=== PATIENT | female | born 1995 | race Caucasian/White ===

== ENCOUNTER 2020-12-11 08:01 | Emergency (ER) | payer OTHER ==
--- OUTSIDE RECORDS SUMMARY | 2020-12-11 08:05 | XMS REPORT | Continuity of Care Document ---
:1995 Author Organization [facility] t Address [address] [place] [address] Care Team Providers Name Role Phone PAULINE Attending Clinician Unavailable COY Attending Clinician Unavailable Payers Payer Name Policy Type Policy Number Effective Date Expiration Date S ource Problems Condition Condition Condition Status Onset Resolution Last Treating Co mments Source Name Details Category Date Date Treatment Clinician Date History of History of Problem Resolve Univers Asthma Asthma d [facility]y of [place] [facility] History of History of Problem Resolve Univers polycystic polycystic d it y of ovarian ovarian [place] syndrome syndrome Physic i ans Shortness Shortness Problem Active Uni vers of breath of breath ity of on on [place] exertion exertion Physic i ans Asthma, Asthma, Problem Active Univers mild mild ity of intermitte intermitte [place] nt nt Physici ans Allergies, Adverse Reactions, Alerts Allergy Allergy Status Severity Reaction(s) Onset Inactive Treating Comm ents Source Name Type Date Date Clinician No Known DA Active U 2020-0 [facility] Allergie 7-17 Clear s 00:00: Guillory 00 [facility] Family History Family Member Diagnosis Comments Start Date Stop Date Source Mother Family history of Univers ity of [place] asthma Physicians Brother Family history of Univers ity of [place] asthma Physicians Social History Smoking Status Start Date Stop Date Source [facility]finding[facility] Medications Ordered Filled Start Stop Current Ordering Indication Dosage Frequency Signature Comments Components Source Medication Medication Date Date Medication? Clinician (SIG) Name Name Symbicort Symbicort 2020-1 Yes DEONTE USE Univers 160-4.5 160-4.5 2-14 DRONAVALLI DIRECTED. ity of MCG/ACT MCG/ACT 00:00: M.D. [place] Inhalation Inhalation 00 Phy sici Aerosol Aerosol ans Albuterol Albuterol 2019-11 Yes DEONTE INHALE 1 Univers Sulfate HFA Sulfate HFA 2-14 DRONAVALLI TO 2 PUFFS ity of 108 (90 108 (90 00:00: M.D. EVERY 4 [place] [facility] Base[place] 00 6 HOURS Physici MCG/ACT MCG/ACT NEEDED. ans Inhalation Inhalation Aerosol Aerosol Solution Solution Renetta Jackson Yes Univers 3-0.02 MG 3-0.02 MG ity o f Oral Tablet Oral Tablet [place] [facility] Vital Signs Vital Name Observation Time Observation Value Comments Source Systolic blood 2020-11-12 136 mm[Hg] [facility] 13:12:00 [place] [facility]ician s Diastolic blood 2020-11-12 84 mm[Hg] [facility] o pressure 13:12:00 [place] [facility] Body height 2020-11-12 62 [in_us] [facility] 13:12:00 [place] [facility] Weight 2020-11-12 318 [lb_av] [facility] 13:12:00 [place] [facility] Body mass index 2020-11-12 58.16 kg/m2 [place] o (BMI) [Ratio] 13:12:00 [facility] Body temperature 2020-11-12 98.5 [degF] Method: [facility] 13:12:00 Tympanic [place] [facility]ician s Heart Rate 2020-11-12 96 /min [facility] 13:12:00 [place] [facility] Respiratory rate 2020-11-12 18 /min [facility] 13:12:00 [place] [facility] O2 SAT 2020-11-12 97 % Source: Vent [facility] 13:12:00 [place] [facility] Procedures Procedure Date / Time Performing Clinician Source Performed 6 Minute Walk Test 2020-11-12 00:00:00 [facility] Physicians Complete PFTs w/DLCO and 2020-11-12 00:00:00 [facility] Lung Volumes Physicians PFT with Methacholine 2020-11-12 00:00:00 [facility] Challenge Physicians Echo (In Office) 2020-11-12 00:00:00 [facility] Physicians [QL] IMMUNOGLOBULIN E 2020-11-12 00:00:00 [facility] Physicians [Q] ASPERGILLUS ANTIGEN 2020-11-12 00:00:00 [facility] Physicians [Q] ASPERGILLUS FUMIGATUS 2020-11-12 00:00:00 Un [facility] (M3) IGE Physicians [Q] ASPERGILLUS NIGER 2020-11-12 00:00:00 [facility] (M207) IGE Physicians [QL] BASIC METABOLIC 2020-11-12 00:00:00 [facility] PANEL W/EGFR Physicians [QL] CBC (INCLUDES 2020-11-12 00:00:00 [facility] DIFF/PLT) Physicians [L] Allergen Profile With 2020-11-12 00:00:00 Un [facility] Total IgE, Respiratory - Physici ans Area 10 XRAY Chest 2 views [id number] 2020-11-12 00:00:00 [facility] Physicians History of Foot surgery [facility] Physicians Plan of Care Planned Activity Planned Date Details Comments Source Diagnostic Test 2020-11-12 Complete PFTs w/DLCO [facility] Pending 00:00:00 and Lung Volumes Physicians [code = Complete PFTs w/DLCO and Lung Volumes] Diagnostic Test 2020-11-[address] [facility] Pending 00:00:00 Challenge [code = PFT Physic ians with Methacholine Challenge] Diagnostic Test 2020-11-12 Echo (In Office) [facility] Pending 00:00:00 [code = 14126] Physicians Diagnostic Test 2020-11-12 6 Minute Walk Test [facility] Pending 00:00:00 [code = 6 Minute Walk Physic ians Test] Future Appointment 2020-12-[address] [facility] 15:30:00 Kelsi CESPEDES Encounters Start End Encounter Admission Attending Care Care Encounter Source Date/Time Date/Time Type Type Clinicians Facility Department ID 2020-11-12 2020-11-12 Sarah CARPENTER PFT [facility] UTP [id number] Univers 14:00:00 14:00:00 t; jaky CARPENTER of PFT [place] Physici ans 2020-11-12 2020-11-12 ABDOULAYE Brito Internal [id number] Univers 13:00:00 13:00:00 t; Deepak CLEMONS - ayaka y Nicolas Alford [facility] , Brody CLEMONS M.D. Center ans Results Test Description Test Time Test Comments Results Result Comments Source Novel Coronavirus 2018 Inhouse 2020-06-16 07:34:00 Test Item Value Reference Range Interpretation Comme nts Novel Coronavirus 2019 Inhouse (test code = COVNONPUI) Negative Negative Novel Coronavirus 2019 [id number] 07:33:00 Test Item Value Reference Range Interpretation Comments Novel Coronavirus 2018 Inhouse (test Negative Negative code = COVNONPUI) BASIC METABOLIC [id number] 16:02:00 Test Item Value Reference Range Interpretation Comments SODIUM (test code = 145 mmol/L 136-145 N NA) POTASSIUM (test code = 4.6 mmol/L 3.5-5.1 N K) CHLORIDE (test code = 108.0 mmol/L 98-107 H CL) CARBON DIOXIDE (test 29.1 mmol/L 21-32 N code = CO2) GLUCOSE (test code = 92 mg/dL 70-110 N GLU) BLOOD UREA NITROGEN 17 mg/dL 7-18 N (test code = BUN) GLOMERULAR FILTRATION 46.2 >60 Unit o f measure: RATE (test code = GFR) mL/mi n/1.73 [id number] Range:Healthy Adults >90 mL/min/1.73 m2 For Chronic Kidney Disease: St age II Mild Decrease in GFR 60-90 St age III Moderate Decrease in GFR 30-59 Stage IV Severe Decre ase in GFR 15- 29 Stage V Kidney Failure <15 CREATININE (test code 1.39 mg/dL 0.55-1.30 H = CREAT) CALCIUM (test code = 8.8 mg/dL 8.2-10.1 N CA) - MRI LW JNT W/O CONT [id number] 11:10:00 Patient Name: JESSI DINERO Unit No: [id number] EXAMS: CPT CODE: [id number] MRI LW JNT W/[place] [id number] MRI RIGHT ANKLE DIAGNOSIS: 1. The distal Achil les tendon is thickened with abnormal increased interstitial signal. Findings compatible withmoderate to marked acute or subacute distal Achilles tendinitis. There appear subtle superimposed interstitial tears. There is also associated marked reactive bone marrow edema of the posterior calcaneus and a moderate amount of inflammatory fluid and inflammation in the retrocalcaneal bursa. 2. Mild to moderate tendinitis and tenosynovitis of the peroneus longus tendon and less severely the peroneus brevis tendon at and distal to the lateral malleolus. INDICATION: Evaluate peroneal tendons COMPARISON: None TECHNIQUE: Multiplanar, multisequence MRI is obtained of the right ankle without contrast. FINDINGS: Laterally, the anterior and posterior talofibular ligaments are intact. The calcaneofibular ligament is intact. The anterior and the posterior syndesmotic ligaments are intact. The superior and inferior peroneal retinacula are intact. Peroneal tendon abnormalities as described.. Medially, the deltoid ligament is intact. The spring ligament is intact. The posterior tibial tendon, flexor digitorum longus andflexor hallucis longus tendons are intact. The tibialis anterior tendon and extensor tendons are intact. The sinus tarsi is normal. No fluid in the retrocalcaneal bursa. No high-grade narrowing of the tibiotalar joint is seen. The Lisfranc ligament is intact. The Achilles tendon abnormality as described. The plantar fascia is intact. There is no evidence of muscular edema or atrophy. at 1110 Reported and signed by: Radha Gasca MD CC: Kamlesh Giron MD Technologist: Jalen Tillman(R) Transc ribed D/ (1110) [email or web address] [facility] NAME: JESSI DINERO [address] [facility] PHYS: Kamlesh Joel : 1995 AGE: 24 SEX: F [place], [place] [address] LOC: Y.MRI PHONE #: [phone] DATE: 08/27/2019 STATUS: DEP CLI FAX #: [phone] RAD #: D/C DT PAGE 1 Signed Report Patient Name: JESSI DINERO Unit No: [id number] EXAMS: CPT CODE: [id number] MRI LW JNT W/[place] [id number] <Continued> Orig Print D/T: S: 08/29/2019 (1113) [facility] NAME: JESSI DINERO [address] PHYS: Kamlesh Joel : 1995 AGE: 24 SEX: F [place] [address] LOC: Y.MRI PHONE #: [phone] EXAM DATE: 08/27/2019 STATUS: DIANN CLI FAX #: [phone] RAD #: D/C DT PAGE 2 Signed Report
--- OUTSIDE RECORDS SUMMARY | 2020-12-11 08:05 | XMS REPORT | Summary of Care ---
:1995 Author Name DEONTE CESPEDES M.D. Address Unavailable Unavailable , Care Team Providers Name Role Phone DEONTE CESPEDES M.D. Unavailable Unavailable DEONTE CESPEDES MD Unavailable Unavailable Unavailable Unavailable Unavailable Functional Status Name Dates Details Functional status health issues are not documented Status: Name Dates Details Cognitive status health issues are not documented Status: Problems Name Dates Details Shortness of breath on exertion (786.05, R06.02) Status: Active Asthma, mild intermittent (493.90, J45.20) Status: Active Medications Name Dates Details Gianvi 3-0.02 MG Oral Tablet Refills: 0 Active Symbicort 160-4.5 MCG/ACT Inhalation Aerosol USE DIRECTED. Quantity: 2 Refills: 4 DEONTE CESPEDES M.D. Start : 12-Nov-2020 Active 6 GM Inhaler Albuterol Sulfate HFA 108 (90 Base) MCG/ACT Inhalation Aerosol Solution INHALE 1 TO 2 PUFFS EVERY 4 TO 6 HOURS NEEDED. Quantity: 2 Refills: 4 DEONTE CESPEDES M.D. Start : 12-Nov-2020 Active 8.5 GM Inhaler Allergies and Adverse Reactions Name Dates Details No Known Drug Allergies (Allergy) Status : Active Past Medical History Name Dates Details History of Asthma (493.90, J45.909) Stat us: Resolved History of polycystic ovarian syndrome (V13.29, Z87.42) Status: Resolved Procedures Procedure Dates Details 6 Minute Walk Test Date: 12-Nov-2020 Complete PFTs w/DLCO and Lung Volumes Date: 12-Nov-2020 PFT with Methacholine Challenge Date: 12-Nov-2020 Echo (In Office) Date: 12-Nov-2020 [QL] IMMUNOGLOBULIN E Date: 12-Nov-2020 [Q] ASPERGILLUS ANTIGEN Date: 12-Nov-2020 [Q] ASPERGILLUS FUMIGATUS (M3) IGE Date: 12-Nov-2020 [Q] ASPERGILLUS NIGER (M207) IGE Date: 12-Nov-2020 [QL] BASIC METABOLIC PANEL W/EGFR Date: 12-Nov-2020 [QL] CBC (INCLUDES DIFF/PLT) Date: 12-Nov-2020 [L] Allergen Profile With Total IgE, Respiratory - Area Date : 12-Nov-2020 10 XRAY Chest 2 views [id number] Date: 12-Nov-2020 History of Foot surgery Completed Immunization Name Dates Details Immunizations not documented Family History Name Dates Details Family history of asthma (V17.5, Z82.5) Status: Active Name Dates Details Family history of asthma (V17.5, Z82.5) Status: Active Social History Name Dates Details - Status: Name Dates Details Never smoked tobacco (finding) Vital Signs Date Test Result Details [id number] Systolic blood pressure 136 mm[Hg] Status: Diastolic blood pressure 84 mm[Hg] Status: Body height 62 in Status: Weight 318 lb Status: Body mass index (BMI) [Ratio] 58.16 kg/m2 Status: Body surface area Derived from formula 2.33 m2 S tatus: Body temperature 98.5 f Status: Comments: Me thod: Tympanic Heart Rate 96 /min Status: Respiratory rate 18 /min Status: O2 SAT 97 % Status: Comments: So urce: Vent Results Date Description Value Details Results not documented Plan of Care Name Dates Details Planned Observations Complete PFTs w/DLCO and Lung Volumes On: 12-Nov-2020 In tent PFT with Methacholine Challenge On: 12-Nov-2020 Intent Echo (In Office) On: 12-Nov-2020 Intent 6 Minute Walk Test On: 12-Nov-2020 Intent Planned Goals not documented Planned Encounters Appointment; DEONTE CESPEDES M.D. On: 31-Dec-2020 15:30 Interventions Provided Medication ChangesAlbuterol Sulfate HFA 108 (90 Base) MCG/ACT Inhalation Aerosol Solution - StartSymbicort 160-4.5 MCG/ACT Inhalation Aerosol - Start Labs/Procedures/Imaging[L] Allergen Profile With Total IgE, Respiratory - Area 10; To Be Done: 12 Nov 2020[Q] ASPERGILLUS ANTIGEN; To Be Done: 12 Nov 2020[Q] ASPERGILLUS FUMIGATUS (M3) IGE; To Be Done: 12 Nov 2020[Q] ASPERGILLUS NIGER (M207) IGE; To Be Done: 12 Nov 2020[QL] BASIC METABOLIC PANEL W/EGFR; To Be Done: 12 Nov 2020[QL] CBC (INCLUDES DIFF/PLT); To Be Done: 12 Nov 2020[QL] IMMUNOGLOBULIN E; To Be Done: 12 Nov 2020XRAY Chest 2 views [id number]; To Be Done: 12 Nov 2020PlanPlan Please take 2 puffs of Symbicort 10-15 min prior to any scheduled physical activity (do not usemore than 4 puffs per day).You may use Albuterol as needed if you have any additional shortness of breath during or after exercise.We are ordering a lung function test, some blood work, a chest X- ray and an ultrasound of your heart.We will see you back in 6-8 weeks. Discussion/SummaryPulmonary Discussion Summary 25 year old female with a history of childhood asthma and polycystic ovarian syndrome (on oral contraceptives) presents to the clinic for evaluation of dyspnea on exertion.1. Dyspnea on exertion: Most likely due to deconditioning. We are ordering a 6 minute walk test to assess baseline function. Ordering an echocardiogram, PFT's, chest Xray and lab work to rule out any other etiology.2. Asthma: As a child ordering PFT's with methacholine to see if the patient is still asthmatic. Prescribing Symbicort to be taken prior to exercise as well as albuterol as needed.3. Morbid Obesity: Counselled regarding weight loss.4. Suspected Obesity hypoventilation: Ordering a metabolic panel to evaluate bicarb level.5. Patient refused the flu vaccine.6. Follow up visit in 6-8 weeks. Instructions Name Dates Details Instructions not documented Encounters Appointment; DEONTE CESPEDES M.D. On: 12-Nov-2020 13:00 Encounter Diagnosis: Problem not documented
--- OUTSIDE RECORDS SUMMARY | 2020-12-11 08:06 | XMS REPORT | Summary of Care ---
:1995 Author Name Leah Harley Address Unavailable Unavailable , Care Team Providers Name Role Phone DEONTE CESPEDES M.D. Unavailable Unavailable DEONTE CESPEDES MD Unavailable Unavailable ANAYELI HENRY MD Unavailable Unavailable Unavailable Unavailable Unavailable Functional Status Name Dates Details Functional status health issues are not documented Status: Name Dates Details Cognitive status health issues are not documented Status: Problems Name Dates Details Shortness of breath on exertion (786.05, R06.02) Status: Active Asthma, mild intermittent (493.90, J45.20) Status: Active Medications Name Dates Details Gianvi 3-0.02 MG Oral Tablet Refills: 0 M.D.Active Symbicort 160-4.5 MCG/ACT Inhalation Aerosol USE DIRECTED. [...] : 12-Nov-2020 10 XRAY Chest 2 views [id number] Date: 12-Nov-2020 History of Foot surgery Completed Immunization Name Dates Details Immunizations not documented Family History Name Dates Details Family history of asthma (V17.5, Z82.5) Status: Active Name Dates Details Family history of asthma (V17.5, Z82.5) Status: Active Social History Name Dates Details - Status: Name Dates Details Never smoked tobacco (finding) Vital Signs Date Test Result Details [id number] Systolic blood pressure 136 mm[Hg] Status: Diastolic [...] of Care Name Dates Details Planned Observations Planned Goals not documented Planned Encounters Appointment; DEONTE CESPEDES M.D. On: 31-Dec-2020 15:30 Instructions Name Dates Details Instructions not documented Encounters Appointment; DEONTE CESPEDES M.D. On: 12-Nov-2020 13:00 Encounter Diagnosis: Problem not documented Appointment; SANYA CARPENTER On: 12-Nov-2020 14:00 Encounter Diagnosis: Problem not documented
--- OUTSIDE RECORDS SUMMARY | 2020-12-11 08:06 | XMS REPORT | Summary of Care ---
:1995 Author Name Airam Barfield Address [facility] Unavailable , Care Team Providers Name Role Phone Carolyne Airam Unavailable Unavailable DEONTE CESPEDES M.D. Unavailable Unavailable DEONTE CESPEDES [...] : 12-Nov-2020 10 XRAY Chest 2 views [id number] Date: 12-Nov-2020 History of Foot surgery Completed Immunization Name Dates Details Immunizations not documented Family History Name Dates Details Family history of asthma (V17.5, Z82.5) Status: Active Name Dates Details Family history of asthma (V17.5, Z82.5) Status: Active Social History Name Dates Details - Status: Name Dates Details Never smoked tobacco (finding) Vital Signs Date Test Result Details [id number] Systolic blood pressure 136 mm[Hg] Status: Diastolic [...]
[2020-12-11 08:44] LABS: Absolute Lymphocytes (CBC) 2.3 K/uL (0.7-4.9); Basophils % 0.7 % (0-1.3); Hematocrit 38.8 % (36.0-45.0); Lymphocytes % 21.1 % (15.3-44.8); MPV 9.3 fL (7.6-11.3); RBC Red Blood Cell Count 4.53 M/uL (3.86-4.86)
--- NOTE | 2020-12-11 08:47 | RAD REPORT ---
EXAM DESCRIPTION: RAD - Chest Single View - 12/11/2020 8:26 am CLINICAL HISTORY: DYSPNEA COMPARISON: Two view chest September 2020 TECHNIQUE: AP portable chest image was obtained 12/11/2020 8:26 am . FINDINGS: Exam is limited by portable technique and large body habitus. There is no dense consolidat ion or mass lesions seen. Hazy opacification over the lower lung ellis is potentially a mild pneumon ia or infiltrate. Ground-glass opacities such is COVID-19 pneumonia cannot be excluded. Heart size within normal limits for body habitus affects and portable imaging. Vasculature is upper n ormal. Failure/ volume overload is not suspected. Trachea is midline. No measurable pleural effusion and no pneumothorax. No acute bony abnormality seen. No acute aortic findings suspected. IMPRESSION: No failure or volume overload identifiable. Hazy bilateral lung base is probably the affects of portable technique and body habitus. Mild infiltr ates are possible. Follow-up CT chest imaging may be helpful to evaluate for pulmonary embolism or oc cult infiltrate.
[2020-12-11 08:48] LABS: Protime INR 1.09
[2020-12-11] MEDS ORDERED: ASPIRIN 81 MG CHEWABLE TABLET ONE (08:57)
[2020-12-11] MEDS ORDERED: NA CHLORIDE 0.9% 2,000 ML ONE (08:57)
[2020-12-11] MEDS ORDERED: HEPARIN/D5W 25,000 UNIT/500 ML BAG IV ONE (08:57)
[2020-12-11] MEDS ORDERED: FAMOTIDINE 20 MG/2 ML VIAL IV ONE (08:57)
[2020-12-11] MEDS ORDERED: HEPARIN 5000 UNIT/ML 1 ML VIAL ONE (08:57)
[2020-12-11 09:01] LABS: ALT/SGPT 26 U/L (12-78); AST/SGOT 23 U/L (15-37); Albumin 2.9 g/dL (3.4-5.0); Alkaline Phosphatase 65 U/L (45-117); BUN Blood Urea Nitrogen 22 mg/dL (7-18); Bicarbonate 21 mmol/L (21-32); Bilirubin Direct < 0.1 mg/dL (0-0.2); Bilirubin Total 0.2 mg/dL (0.2-1.0); Glucose Level 155 mg/dL (74-106); NT PRO-BNP 64 pg/mL (<125); Potassium 3.7 mmol/L (3.5-5.1); Protein, Total 8.2 g/dL (6.4-8.2); Sodium Level 137 mmol/L (136-145); Troponin (Emerg Dept Use Only) 0.07 ng/mL (0.0-0.045)
--- NOTE | 2020-12-11 09:27 | ER ---
Nurse's Notes [facility] Name: Paz Keenan Age: 25 yrs Sex: Female : 1995 Arrival Date: 12/11/2020 Time: 08:02 Bed 6 Private MD: Diagnosis: Pulmonary embolism with acute cor pulmonale;Tachycardia, unspecified;Hypoxemia;Acute kidney failure;Obesity, unspecified;Acute embolism and thrombosis of deep veins of lower extremity-right Presentation: 12/11 08:13 Chief complaint: Patient states: shortness of breath x 2 months that became much worse ss this morning. Pt reports she had an appointment with cardiology yesterday which she had an ECHO and an EKG which they told her besides a high heart rate in the 120's, everything is normal. Coronavirus screen: Client denies travel out of the [place] in the last 14 days. Ebola Screen: Patient denies exposure to infectious person. Patient denies travel to an Ebola-affected area in the 21 days before illness onset. Initial Sepsis Screen: Does the patient meet any 2 criteria? No. Patient's initial sepsis screen is negative. Does the patient have a suspected source of infection? No. Patient's initial sepsis screen is negative. Risk Assessment: Do you want to hurt yourself or someone else? Patient reports no desire to harm self or others. Onset of symptoms was December 11, 2020. 08:13 Method Of Arrival: Ambulatory ss 08:13 Acuity: CARMELITA 1 ss Historical: - Allergies: 08:17 No Known Allergies; ss - PMHx: 08:17 PCOS; Asthma; ss - PSHx: 08:17 R achilles repair; ss - Immunization history:: Adult Immunizations up to date. - Social history:: Smoking status: Patient denies any tobacco usage or history of. Screenin:30 Abuse screen: Denies threats or abuse. Nutritional screening: No deficits noted. em Tuberculosis screening: No symptoms or risk factors identified. Fall Risk None identified. Assessment: 08:25 General: Appears distressed, uncomfortable, obese, Behavior is cooperative, anxious. em Pain: Denies pain. Neuro: Level of Consciousness is awake, alert, obeys commands, Oriented to person, place, time, situation, Appropriate for age. Cardiovascular: Reports shortness of breath, Denies chest pain, Capillary refill < 3 seconds Rhythm is sinus tachycardia. Respiratory: Airway is patent Respiratory effort is labored, Respiratory pattern is tachypnea Breath sounds are clear bilaterally. GI: Patient currently denies diarrhea, nausea, vomiting. Derm: Skin is intact, is healthy with good turgor, Skin is pale. Musculoskeletal: Capillary refill < 3 seconds, Range of motion: intact in all extremities. 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 em 09:25 Reassessment: US at bedside. em 09:59 Reassessment: stopped Heparin drip while Activase is infusing per MD order. em 10:00 Reassessment: administered Activase 100 mg over 2 hours per MD order. em 10:22 Reassessment: report given to Alonzo, pending transfer from [facility]. em 10:41 Reassessment: Patient appears in no apparent distress at this time. Patient and/or em family updated on plan of care and expected duration. Pain level reassessed. report given to [facility]. Vital Signs: 08:13 BP 121 / 81; Pulse 153; Resp 36; Temp 96.7(TE); Pulse Ox 76% ; Weight 143.34 kg; Height ss 5 ft. 2 in. (157.48 cm); Pain 08/10; 09:13 BP 129 / 89; Pulse 140; Resp 32; Pulse Ox 96% on 35% Venturi mask; Pain 0/10; em 10:02 BP 142 / 77; Pulse 136; Resp 30; Pulse Ox 97% on 30% Venturi mask; em 08:13 Body Mass Index 57.80 (143.34 kg, 157.48 cm) ED Course: 08:02 Patient arrived in ED. as 08:08 Eb Hook MD is Attending Physician. [facility] 08:17 Triage completed. ss 08:17 Arm band placed on right wrist. ss 08:19 Rk Green, RN is Primary Nurse. em 08:26 XRAY Chest (1 view) In Process Unspecified. EDMS 08:30 Initial lab(s) drawn, by me, sent to lab. Inserted saline lock: 22 gauge in left Blood em collected. 08:30 First set of blood cultures drawn by me. em 08:55 Patient has correct armband on for positive identification. Placed in gown. Bed in low mh5 position. Call light in reach. Side rails up X2. Warm blanket given. campus monitor on. Pulse ox on. NIBP on. 09:[address] [facility] by dr hook. bd 09:27 US Extremity Venous W Compression Jesus In Process Unspecified. EDMS 09:35 initiated transfer to [facility], pt was denied due to no icu beds at this time. bd 09:35 initiated transfer to [facility] by dr hook. bd 09:55 Inserted saline lock: 22 gauge in right hand, using aseptic technique. em 09:57 pt denied at [facility] due to no beds at this time,per Jose E Giang. bd 10:42 pt accepted in transfer to [facility] ER by dr Nath, admin approval given bd by Bessy Gramajo. pt sent to [facility] by [facility]. 10:50 No provider procedures requiring assistance completed. Patient transferred, IV remains em in place. Administered Medications: 08:47 Drug: Aspirin 162 mg Route: PO; em 09:32 Follow up: Response: No adverse reaction em 08:48 Drug: NS 0.9% 1000 ml Route: IV; Rate: 1 bolus; Site: left antecubital; em 10:39 Follow up: IV Status: Completed infusion; IV Intake: 1000ml em 08:55 Drug: Pepcid 20 mg Route: IVP; Site: left antecubital; em 09:32 Follow up: Response: No adverse reaction em 08:57 Drug: Heparin (DVT/PE- Bolus per protocol) - HEParin 80 units/kg {Co-Signature: iw em (Shari Frazier RN).} Route: IVP; Site: left antecubital; 09:30 Follow up: Response: No adverse reaction em 08:58 Drug: Heparin (DVT/PE Drip) 18 units/kg/hr - (HEParin 04136 units, D5W 500 ml) em {Co-Signature: iw (Shari Frazier RN).} Route: IV; Rate: 18 units/kg; Site: left antecubital; 10:40 Follow up: IV Status: Infusion continued upon transfer em 09:50 Drug: NS 0.9% 1000 ml Route: IV; Rate: 1 bolus; Site: left antecubital; em 10:40 Follow up: IV Status: Infusion continued upon transfer em 10:05 Drug: Rocephin 2 grams Route: IV; Rate: per protocol; Site: left antecubital; em 10:38 Follow up: IV Status: Completed infusion em 10:48 Not Given (Physician Discretion): Digoxin 0.5 mg IVP once em Intake: 10:39 IV: 1000ml; Total: 1000ml. em Outcome: 09:26 ER care complete, transfer ordered by . crystal 10:50 Transferred by helicopter [place] [facility] [facility] completed. em X-rays sent w/ patient. 10:50 Condition: stable 10:50 Instructed on the need for transfer, Demonstrated understanding of instructions. 10:51 Patient left the ED. em Signatures: Dispatcher [employer] EDChela Henao Corey, MD MD cha Munoz, Edgar, RN RN Marlene Swan Shelby, RN RN Nancy Kitchen mh5 Shari Frazier RN
--- NOTE | 2020-12-11 09:27 | EDPHYS ---
Physician Documentation [facility] Name: Paz Keenan Age: 25 yrs Sex: Female : 1995 Arrival Date: 12/11/2020 Time: 08:02 Bed 6 Private MD: ED Physician Eb Hook HPI: 12/11 08:44 This 25 yrs old Female presents to ER via Ambulatory with complaints of crystal Shortness Of Breath. 08:44 The patient has shortness of breath at rest, with light activity. Onset: The crystal symptoms/episode began/occurred 1 month(s) ago. Duration: The symptoms are continuous, and are steadily getting worse. The patient's shortness of breath is aggravated by exertion, light activity, supine position, talking, walking. Associated signs and symptoms: Pertinent positives: chest pain, dizziness. Severity of symptoms: At their worst the symptoms were moderate severe this morning, today, in the emergency department the symptoms are unchanged. The patient has experienced similar episodes in the past, multiple times, but today's symptoms are worse. Historical: - Allergies: 08:17 No Known Allergies; ss - PMHx: 08:17 PCOS; Asthma; ss - PSHx: 08:17 R achilles repair; ss - Immunization history:: Adult Immunizations up to date. - Social history:: Smoking status: Patient denies any tobacco usage or history of. ROS: 08:45 Eyes: Negative for injury, pain, redness, and discharge, ENT: Negative for injury, crystal pain, and discharge, Neck: Negative for injury, pain, and swelling, Abdomen/GI: Negative for abdominal pain, nausea, vomiting, diarrhea, and constipation, Back: Negative for injury and pain, Skin: Negative for injury, rash, and discoloration, Neuro: Negative for headache, weakness, numbness, tingling, and seizure, Psych: Negative for depression, anxiety, suicide ideation, homicidal ideation, and hallucinations, Endocrine: Negative for neck swelling, polydipsia, polyuria, polyphagia, and marked weight changes, Hematologic/Lymphatic: Negative for swollen nodes, abnormal bleeding, and unusual bruising. 08:45 Constitutional: Positive for fatigue, malaise. 08:45 Cardiovascular: Positive for chest pain, palpitations. 08:45 Respiratory: Positive for cough, dyspnea on exertion, orthopnea, shortness of breath, at rest. 08:45 Abdomen/GI: Negative for abdominal pain, nausea and vomiting. 08:45 MS/extremity: Negative for acute changes. Exam: 08:45 Head/Face: Normocephalic, atraumatic. Eyes: Pupils equal round and reactive to light, crystal extra-ocular motions intact. Lids and lashes normal. Conjunctiva and sclera are non-icteric and not injected. Cornea within normal limits. Periorbital areas with no swelling, redness, or edema. Neck: Trachea midline, no thyromegaly or masses palpated, and no cervical lymphadenopathy. Supple, full range of motion without nuchal rigidity, or vertebral point tenderness. No Meningismus. Chest/axilla: Normal chest wall appearance and motion. Nontender with no deformity. No lesions are appreciated. Back: No spinal tenderness. No costovertebral tenderness. Full range of motion. Skin: Warm, dry with normal turgor. Normal color with no rashes, no lesions, and no evidence of cellulitis. MS/ Extremity: Pulses equal, no cyanosis. Neurovascular intact. Full, normal range of motion. Neuro: Awake and alert, GCS 15, oriented to person, place, time, and situation. Cranial nerves II-XII grossly intact. Motor strength 5/5 in all extremities. Sensory grossly intact. Cerebellar exam normal. Normal gait. Psych: Awake, alert, with orientation to person, place and time. Behavior, mood, and affect are within normal limits. 08:45 Constitutional: The patient appears in obvious distress, moderately distressed. 08:45 Cardiovascular: Rate: tachycardic, Rhythm: regular, Pulses: Pulses are 4+ in bilateral radial, brachial, femoral, popliteal, posterior tibial and and dorsalis pedis arteries.. Heart sounds: normal, Edema: is not appreciated, JVD: is not appreciated. 08:45 Respiratory: moderate respiratory distress is noted, Respirations: labored breathing, that is moderate, Breath sounds: are clear throughout, Respiratory rate: 36 08:45 Musculoskeletal/extremity: Extremities: all appear grossly normal, with no appreciated pain with palpation, DVT Exam: No signs of deep vein thrombosis. no pain, no swelling, no tenderness, negative Homans' sign noted on exam, no appreciated bluish discoloration, no erythema, no increased warmth. 09:33 ECG was reviewed by the Attending Physician. [facility] Vital Signs: 08:13 BP 121 / 81; Pulse 153; Resp 36; Temp 96.7(TE); Pulse Ox 76% ; Weight 143.34 kg; Height ss 5 ft. 2 in. (157.48 cm); Pain 08/10; 09:13 BP 129 / 89; Pulse 140; Resp 32; Pulse Ox 96% on 35% Venturi mask; Pain 0/10; em 10:02 BP 142 / 77; Pulse 136; Resp 30; Pulse Ox 97% on 30% Venturi mask; em 08:13 Body Mass Index 57.80 (143.34 kg, 157.48 cm) ss MDM: 08:08 Patient medically screened. crystal 08:47 Differential diagnosis: asthma, Bronchitis Chronic Obstructive Pulmonary Disease crystal abnormal EKG, anxiety, coronary artery disease cholecystitis, Cholelithiasis hiatal hernia, pancreatitis, pneumonia, pulmonary embolus, stable angina, pneumonia, Pneumothorax pulmonary edema, Pulmonary Embolism Unstable Angina. Antibiotic administration: Not indicated. HEART Score: History: Slightly Suspicious (0), ECG: Non specific repolarization disturbance / LBTB / PM (1), Age: < or = 45 years (0), Risk Factors: No Risk Factors Known (0), Troponin: < or = 1 x Normal Limit (0), Total Score = 0. The patient's Wells Deep Vein Thrombosis Score was calculated as follows: Suspected DVT (3 Pts) Heart Rate >100 BPM (1.5 Pts) Imm/Surg in last 4 wks (1.5 Pts) Total Score: 3-6 Pts - Mod Risk. The patient's pulmonary embolism risk score was calculated as follows: suspected deep vein thrombosis (3 Pts) alternative diagnosis is less likely (3 Pts) the patients heart rate is greater than 100 beats per minute (1.5 Pts) patient has experienced immobilization or surgery in the last four weeks (1.5 Pts) Total Score: greater than 6 points. This patient was found to be at low risk for a pulmonary embolism by using the Well's assessment criteria. PARTH Risk Score: TOTAL SCORE = 0. Immunization status:. Data reviewed: vital signs, nurses notes, lab test result(s), EKG, radiologic studies, CT scan, doppler, plain films. Data interpreted: shelter monitor: rate is 153 beats/min, rhythm is regular, Pulse oximetry: on room air is 76 %. Test interpretation: by ED physician or midlevel provider: ECG, plain radiologic studies. Counseling: I had a detailed discussion with the patient and/or guardian regarding: the historical points, exam findings, and any diagnostic results supporting the discharge/admit diagnosis, lab results, radiology results, the need to transfer to another facility, for higher level of care, [facility] does not immediately have the required specialist. 08:50 Physician consultation: Byron Ghotra MD regarding chest xray, grosslt normal, no pna, crystal no ptx, no chf, no cardiomegaly. ED course: m obesity , sob x 1 month, on control pills, tachycardia, lungs clear, sats 76%. 12/11 08:11 Order name: Basic Metabolic Panel; Complete Time: 09:11 [facility] 12/11 08:11 Order name: CBC with Diff; Complete Time: 09:11 [facility] 12/11 08:11 Order name: LFT's; Complete Time: 09:11 [facility] 12/11 08:11 Order name: Magnesium; Complete Time: 09:11 [facility] 12/11 08:11 Order name: NT PRO-BNP; Complete Time: 09:11 [facility] 12/11 08:11 Order name: PT-INR; Complete Time: 09:11 [facility] 12/11 08:11 Order name: Troponin (emerg Dept Use Only); Complete Time: 09:11 [facility] 12/11 08:18 Order name: ABG; Complete Time: 10:03 [facility] 12/11 08:42 Order name: Ptt, Activated; Complete Time: 09:27 [facility] 12/11 08:57 Order name: Add On-Lab bd 12/11 08:58 Order name: CREATININE WHOLE BLOOD; Complete Time: 09:11 [facility] 12/11 08:59 Order name: CREATININE WHOLE BLOOD [facility] 12/11 09:44 Order name: Blood Culture Adult (2) [facility] 12/11 08:11 Order name: XRAY Chest (1 view); Complete Time: 09:11 [facility] 12/11 08:11 Order name: EKG; Complete Time: 08:11 [facility] 12/11 08:18 Order name: Echo w/ Doppler [facility] 12/11 08:18 Order name: US Extremity Venous W Compression Jesus; Complete Time: 10:03 [facility] 12/11 10:22 Order name: Test, Serum [facility] 12/11 10:23 Order name: Test Serum, [facility] 12/11 08:11 Order name: Cardiac monitoring; Complete Time: 08:55 [facility] 12/11 08:11 Order name: EKG - Nurse/Tech; Complete Time: 08:55 [facility] 12/11 08:11 Order name: IV Saline Lock; Complete Time: 08:36 [facility] 12/11 08:11 Order name: Labs collected and sent; Complete Time: 08:36 [facility] 12/11 08:11 Order name: O2 Per Protocol; Complete Time: 08:36 [facility] 12/11 08:11 Order name: O2 Sat Monitoring; Complete Time: 08:36 [facility] 12/11 08:42 Order name: IV Saline Lock - Large Bore; Complete Time: 09:06 [facility] 12/11 09:17 Order name: Misc. Order: activase 100 mg over 2 hours, stop heparin; Complete Time: [facility] 10:10 EC:33 Rate is 138 beats/min. Rhythm is regular. QRS [place] is Normal. [place] interval is normal. crystal QRS interval is normal. QT interval is normal. No Q waves. T waves are Normal. ST Segment is depressed in leads III, aVF, V3, V4, V5. Clinical impression: Sinus tachycardia. Administered Medications: 08:47 Drug: Aspirin 162 mg Route: PO; em 09:32 Follow up: Response: No adverse reaction em 08:48 Drug: NS 0.9% 1000 ml Route: IV; Rate: 1 bolus; Site: left antecubital; em 10:39 Follow up: IV Status: Completed infusion; IV Intake: 1000ml em 08:55 Drug: Pepcid 20 mg Route: IVP; Site: left antecubital; em 09:32 Follow up: Response: No adverse reaction em 08:57 Drug: Heparin (DVT/PE- Bolus per protocol) - HEParin 80 units/kg {Co-Signature: iw em (Shari Frazier RN).} Route: IVP; Site: left antecubital; 09:30 Follow up: Response: No adverse reaction em 08:58 Drug: Heparin (DVT/PE Drip) 18 units/kg/hr - (HEParin 24865 units, D5W 500 ml) em {Co-Signature: iw (Shari Frazier RN).} Route: IV; Rate: 18 units/kg; Site: left antecubital; 10:40 Follow up: IV Status: Infusion continued upon transfer em 09:50 Drug: NS 0.9% 1000 ml Route: IV; Rate: 1 bolus; Site: left antecubital; em 10:40 Follow up: IV Status: Infusion continued upon transfer em 10:05 Drug: Rocephin 2 grams Route: IV; Rate: per protocol; Site: left antecubital; em 10:38 Follow up: IV Status: Completed infusion em 10:48 Not Given (Physician Discretion): Digoxin 0.5 mg IVP once em Disposition: 12/11/20 09:26 Transfer ordered to [facility]. Diagnosis are Pulmonary embolism with acute cor pulmonale, Tachycardia, unspecified, Hypoxemia, Acute kidney failure, Obesity, unspecified, Acute embolism and thrombosis of deep veins of lower extremity - right. - Reason for transfer: Higher level of care. - [facility]. - Condition is Serious. - Problem is new. - Symptoms have improved. Signatures: Dispatcher [employer] [facility] Eb Hook MD MD cha Munoz, Edgar, RN RN Екатерина Mcrae RN RN Shari Frazier RN iw Corrections: (The following items were deleted from the chart) 09:17 08:19 Chest For PE Angio+CT.RAD.BRZ ordered. [facility] EDMS 09:52 09:26 12/11/2020 09:26 Transfer ordered to [facility]. crystal Diagnosis is Pulmonary embolism with acute cor pulmonale; Tachycardia, unspecified; Hypoxemia; Acute kidney failure; Obesity, unspecified. Reason for transfer: Higher level of care. Accepting physician is to [facility]. Condition is Serious. Problem is new. Symptoms have improved. crystal 10:07 08:19 CORONAVIRUS+MR.LAB.BRZ ordered. EDNM EDMS 10:40 09:27 Wang ordered. crystal em 10:51 09:52 12/11/2020 09:26 Transfer ordered to [facility]. em Diagnosis is Pulmonary embolism with acute cor pulmonale; Tachycardia, unspecified; Hypoxemia; Acute kidney failure; Obesity, unspecified; Acute embolism and thrombosis of deep veins of lower extremity - right. Reason for transfer: Higher level of care. Accepting physician [facility] to [facility]. Condition is Serious. Problem is new. Symptoms have improved. crystal
[2020-12-11 09:31] LABS: Arterial Blood Carboxyhemoglob 1.1 % (0-1.5); Blood Gas Oxyhemoglobin 94.9 % (94-97); Blood O2 Saturation 96.7 % (92-98.5)
[2020-12-11] MEDS ORDERED: ALTEPLASE 100 ML IV ONE (09:34)
--- NOTE | 2020-12-11 09:57 | RAD REPORT ---
EXAM DESCRIPTION: US - Extrem Venous W Compress Jesus - 12/11/2020 9:46 am CLINICAL HISTORY: SWELLING, leg pain COMPARISON: None. TECHNIQUE: Real-time sonographic evaluation of the bilateral lower extremity common femoral, superfi cial femoral, popliteal and posterior tibial veins was performed. FINDINGS: Right common femoral, superficial femoral and popliteal veins show echogenic material with in the lumen. There is absent or diminished compression. Doppler evaluation shows some blood flow wit hin these vessels. The left lower extremity deep venous system shows good compression with phasic, augmentable flow. No intraluminal filling defects identified. Patient indicates concern of a lump or palpable area in the inner right calf. A 4 x 4 x 1.5 centimete r homogeneous echogenic mass is identified similar to slightly hyperechoic to subcutaneous fat. This is believed to be an incidental lipoma. IMPRESSION: Acute deep venous thrombosis in the right lower extremity from groin to knee. No left leg acute DVT. Palpable mass in the right calf is believed to be a lipoma.
[2020-12-11] MEDS ORDERED: CEFTRIAXONE/SWI 1gm 2 GM/20 ML SYR ONE (10:10)
[2020-12-11 10:55] VITALS: TEMP 96.7
[2020-12-11 10:58] VITALS: BP 142/77; O2SAT 97
[2020-12-11] MEDS ORDERED: DIGOXIN 0.25 MG/ML AMP ONE (10:58)
--- NOTE | 2020-12-12 06:10 | EKG ---
Test Date: 2020-12-11 Test Time: 08:48:50 Plant Cytologist: FROILAN MEASUREMENT RESULTS: Intervals: Rate: 138 [place]: 120 QRSD: 88 QT: 368 QTc: 557 [place]: P: [place]: 120 QRS: 93 T: 14 INTERPRETIVE STATEMENTS: Sinus tachycardia Rightward axis T wave abnormality, consider inferior ischemia Abnormal ECG No previous ECG available for comparison Electronically Signed On 12-12-20 06:09:00 SAUSAGE STRINGER by Igor Rodney
--- NOTE | 2020-12-12 08:31 | ECHO ---
HEIGHT: 5 ft 2 in WEIGHT: 316 lb 0 oz DATE OF STUDY: 12/11/[address]: Eb Hook MD 2-DIMENSIONAL: YES M.MODE: YES DOPPLER: YES COLOR FLOW: YES TDS: YES PORTABLE: NO DEFINITY: NO BUBBLE STUDY: NO DIAGNOSIS: DYSPNEA CARDIAC HISTORY: CATHERIZATION: NO SURGERY: NO PROSTHETIC VALVE: NO PACEMAKER: NO MEASUREMENTS (cm) DIASTOLIC (NORMALS) SYSTOLIC (NORMALS) IVSd 1.1 (0.6-1.2) LA Diam (1.9-4.0) LVEF 57% LVIDd 3.1 (3.5-5.7) LVIDs 2.2 (2.0-3.5) %FS 29% LVPWd 1.0 (0.6-1.2) Ao Diam 2.6 (2.0-3.7) 2 DIMENSIONAL ASSESSMENT: RIGHT ATRIUM: NORMAL LEFT ATRIUM: NORMAL RIGHT VENTRICLE: NORMAL LEFT VENTRICLE: NORMAL TRICUSPID VALVE: NORMAL MITRAL VALVE: NORMAL PULMONIC VALVE: NORMAL AORTIC VALVE: NORMAL PERICARDIAL EFFUSION: NONE AORTIC ROOT: NORMAL LEFT VENTRICULAR WALL MOTION: NORMAL DOPPLER/COLOR FLOW: MODERATE TRICUSPID REGURGITATION. COMMENTS: MODERATE TRICUSPID REGURGITATION. SEVERE PULMONARY HYPERTENSION. RIGHT VENTRICULAR SYSTOLIC PRESSURE 64 mmHg. NORMAL LEFT VENTRICULAR EJECTION FRACTION. HYPREDYNAMIC LEFT VENTRICLE. TECHNOLOGIST: Doroteo GLOVER
== END 2020-12-11 10:51 | disposition short-term general hospital (02) ==
LOC: ER 08:01
DX: I26.09 Other pulmonary embolism with acute cor pulmonale (principal); I82.4Z1 Acute embolism and thrombosis of unspecified deep veins of right distal lower extremity; Z20.822 Contact with and (suspected) exposure to COVID-19; R00.0 Tachycardia, unspecified; R09.02 Hypoxemia; N17.9 Acute kidney failure, unspecified; E66.9 Obesity, unspecified
CPT/HCPCS: 93005; 93306; 87040 ×2; 85025; 80048; 36415; 83735; 84703; 85610; 82565; 80076; 85730; 84484; 83880; 71045; 93970; 82805; U0003; J2997; J1160; J1644 ×2; J0696; J7030; 96365; 96375; 99291